=== PATIENT | male | born 2000 | race African-American/Black ===

== ENCOUNTER 2018-12-30 23:21 | Emergency (ER) | payer BC ==
[2018-12-30] MEDS ORDERED: Lidocaine 1% PF 5 ML VIAL ONE (23:35)
[2018-12-30] MEDS ORDERED: Bacitracin 1 PK ONE (23:46)
== END 2018-12-30 23:52 | disposition home or self-care (01) ==
LOC: SCSER 23:21
DX: L02.214 Cutaneous abscess of groin (principal); D64.9 Anemia, unspecified
CPT/HCPCS: 10060; J2001

== ENCOUNTER 2022-06-19 18:00 | Outpatient (CLI) | payer BC | END 2022-06-19 18:01 | disposition home or self-care (01) | LOC: SLEEPLAB 18:00 | PROVIDERS: ATTEND Family Medicine | DX: G47.10 Hypersomnia, unspecified (principal); G47.9 Sleep disorder, unspecified; G47.61 Periodic limb movement disorder; G25.81 Restless legs syndrome | CPT/HCPCS: 95800 ==